=== PATIENT | female | born 1955 | race Caucasian/White ===

== ENCOUNTER 2020-09-07 19:31 | Observation (INO) ==
[2020-09-07 20:20] LABS: ABG ALLEN TEST POS; ABG BASE EXCESS 3.2 mmol/L (-2.0-2.0); ABG HCO3 26.9 mmol/L (22-26)
[2020-09-07 20:22] VITALS: BMI 29.2
--- NOTE | 2020-09-07 20:49 | DR.EXTPAIN ---
HPI Time seen Time Seen by Provider: 09/07/20 20:48 PCP Primary Care Physician: GALDINO HERNANDEZ HPI Comment HPI Comment: According to pt she was tested pos for covid over a week ago .has noticed gradual increase inshortness of bretah .became cocenrend hence the visit .her oxygen was running in higher 80`s on room air .Pt has hx of astham .has bee started on steroids already by her FP and completed a course for ivermectin Complaint/Symptoms Chief Complaint Doctor Comments: shortness of breath Chief Complaint:: PT STATED SHE HAD COVID LAST WEDNESDAY TESTED POSITIVE. SHE STA KATI TODAY SHE HAS BEEN SOB. PT DENIES PAIN AT THIS TIME. COVID-19 Coronavirus symptoms experienced: Shortness of Breath Nurses notes reviewed Nurses Notes Review: Yes Source History Provided: Patient Mode of arrival Mode of Arrival: Ambulatory Timing Onset of Chief Complaint: 08/30/20 Context History of: None Associated signs and symptoms Associated Signs and Symptoms: Shortness of Breath PMH PMH Past Medical History: Yes Past Medical History: Asthma, Depression and Hypertension Past Medical History Comment: COVID Past Surgical History: No Family History History of Family Medical Conditions: Yes Family Medical History: Diabetes Mellitus and Hypertension Social History Type of Tobacco Use: None Alcohol Use: None Do you use any recreational Drugs:: No Lives With: Family Lives Where: Home Infectious screening In the last 2 months have you had wt loss of >10#?: NO Have you had fever, night sweats or hemotysis?: No Have you traveled outside the country in the last 6 months?: No Isolation: Droplet ROS Review of Systems Eyes: No Symptoms Reported ENTM: No Symptoms Reported Respiratoy: Dry Cough and Short of Breath Cardiovascular: No Symptoms Reported Gastrointestinal/Abdominal: No Symptoms Reported Genitourinary: No Symptoms Reported Neurological: No Symptoms Reported Musculoskeletal: No Symptoms Reported Integumentary: No Symptoms Reported Hematologic/Lymphatic: No Symptoms Reported Endocrine: No Symptoms Reported PE Vital Signs Vitals: Temperature 97.9 F Pulse Rate [Right Radial] 70 Pulse Rate 89 Respiratory Rate 20 Blood Pressure [Right Arm] 134/72 Blood Pressure 115/58 O2 Sat by Pulse Oximetry 96 General Limitations: No Limitations General Appearance: Alert, Anxious and In Distress Head Head Exam: Normal Inspection and Atraumatic Eyes Eye exam: Normal Appearance, PERRL and EOMI ENT ENT Exam: Normal Oropharynx and Mucous Membranes Dry Neck Neck Exam: Normal Inspection and Full ROM Chest Chest Inspection: Normal Inspection and Symmetric Chest Wall Rise Respiratory Respiratory Exam: Bilateral: Crackles Cardiovascular Cardiovascular Exam: +S1 and +S2 Abdominal Exam Abdominal Exam: Normal Inspection, Normal Bowel Sounds and Soft Neurological Neurological Exam: Alert, Oriented X3, CN II-XII Intact and Reflexes Normal Skin Skin Exam: Normal Color MDM Differential Diagnosis Differential Diagnosis: Other (covid 19 infection,hypoxia,shortness of breath ,cough ,hx of asthma) COURSE Treatment Treatment: oxygenation improved with oxygen via NC dsicussed with Dr Loya agreed to admit patient under observation ROR Labs Reviewed Laboratory Results Reviewed?: Yes Result Diagrams: 09/07/20 22:24 09/07/20 22:24 Laboratory: WBC 4.4 X10^3/uL (3.6-10.0) 09/07/20 22:24 RBC 4.30 X10^6/uL (3.5-5.4) 09/07/20 22:24 Hgb 13.5 g/dL (12.0-16.0) 09/07/20 22:24 Hct 38.4 % (36.0-47.0) 09/07/20 22:24 MCV 89.3 fL (80.0-100.0) 09/07/20 22:24 MCH 31.4 pg (27.0-34.0) 09/07/20 22:24 MCHC 35.2 g/dL (33.0-35.0) H 09/07/20 22:24 RDW 12.8 % (11.6-16.5) 09/07/20 22:24 Plt Count 218 X10^3/uL (150.0-450.0) 09/07/20 22:24 MPV 8.7 fL (7.4-11.0) 09/07/20 22:24 Neut % (Auto) 70.5 % (42.0-75.0) 09/07/20 22:24 Lymph % (Auto) 15.0 % (21.0-51.0) L 09/07/20 22:24 [place] % (Auto) 14.0 % (0.0-13.0) H 09/07/20 22:24 Eos % (Auto) 0.0 % (0.9-2.9) L 09/07/20 22:24 Baso % (Auto) 0.5 % (0.2-1.0) 09/07/20 22:24 Neut # (Auto) 3.1 x10^3/uL (2.2-4.8) 09/07/20 22:24 Lymph # (Auto) 0.7 X10^3/uL (1.3-2.9) L 09/07/20 22:24 [place] # (Auto) 0.6 x10^3/uL (0.3-0.8) 09/07/20 22:24 Eos # (Auto) 0.0 x10^3/uL (0.0-0.2) 09/07/20 22:24 Baso # (Auto) 0.0 X10^3/uL (0.0-0.1) 09/07/20 22:24 Absolute Nucleated RBC 0.1 /100WBC 09/07/20 22:24 D-Dimer 0.53 ug/ml (0.0-0.57) 09/07/20 22:24 Sample Site Lr 09/07/20 20:12 ABG pH 7.470 (7.35-7.45) H 09/07/20 20:12 ABG pCO2 37.0 mmHg (35.0-45.0) 09/07/20 20:12 ABG pO2 59.0 mmHg (80.0-100.0) L 09/07/20 20:12 ABG HCO3 26.9 mmol/L (22-26) H 09/07/20 20:12 ABG O2 Saturation 92.0 % (90-100) 09/07/20 20:12 ABG Base Excess 3.2 mmol/L (-2.0-2.0) H 09/07/20 20:12 Raj Test Pos 09/07/20 20:12 A-a Gradient 44.0 mmHg 09/07/20 20:12 FiO2 21 09/07/20 20:12 Blood Gas Comments Adrianne well ae 09/07/20 20:12 Sodium 141 mmol/L (136-145) 09/07/20 22:24 Corrected Sodium 141 mmol/L (136-145) 09/07/20 22:24 Potassium 3.7 mmol/L (3.5-5.1) 09/07/20 22:24 Chloride 103 mmol/L (98-107) 09/07/20 22:24 Carbon Dioxide 28.4 mmol/L (21-32) 09/07/20 22:24 BUN 10 mg/dL (7-18) 09/07/20 22:24 Creatinine 0.86 mg/dL (0.55-1.02) 09/07/20 22:24 Est GFR (MDRD) Af Amer > 60 (>60) 09/07/20 22:24 Est GFR (MDRD) Non-Af > 60 (>60) 09/07/20 22:24 Glucose 114 mg/dL (65-99) H 09/07/20 22:24 Calcium 9.0 mg/dL (8.5-10.1) 09/07/20 22:24 Corrected Calcium 9.6 mg/dL (8.5-10.1) 09/07/20 22:24 Ferritin 307 ng/mL (8-252) H 09/07/20 22:24 Total Bilirubin 0.40 mg/dL (0.2-1.0) 09/07/20 22:24 AST 15 Units/L (15-37) 09/07/20 22:24 ALT 28 Units/L (12-78) 09/07/20 22:24 Alkaline Phosphatase 97 Units/L (46-116) 09/07/20 22:24 Total Protein 7.5 g/dL (6.4-8.2) 09/07/20 22:24 Albumin 3.2 g/dL (3.4-5.0) L 09/07/20 22:24 Globulin 4.3 g/dL (2.5-4.5) 09/07/20 22:24 Albumin/Globulin Ratio 0.7 Ratio (1.1-2.1) L 09/07/20 22:24 Specimen Type Clean catch urine 09/07/20 22:26 Urine Color Yellow (YELLOW) 09/07/20 22: Urine Appearance Clear (CLEAR) 09/07/20 22: Urine pH 7.0 (5.0 - 8.0) 09/07/20 22:26 Ur Specific [place] 1.010 (1.000-1.030) 09/07/20 22: Urine Protein Negative (NEGATIVE) 07/10/21 22:26 Urine Glucose (UA) Negative (NEGATIVE) 09/07/20 22:26 Urine Ketones Negative (NEGATIVE) 09/07/20 22:26 Urine Occult Blood 1+ (NEGATIVE) 09/07/20 22:26 Urine Nitrite Negative (NEGATIVE) 09/07/20 22:26 Urine Bilirubin Negative (NEGATIVE) 09/07/20 22:26 Urine Urobilinogen Normal (NORMAL) 09/07/20 22:26 Ur Leukocyte Esterase 2+ (NEGATIVE) 09/07/20 22:26 Urine RBC None seen /HPF (0-3) 09/07/20 22:26 Urine WBC None seen /HPF (0-5) 09/07/20 22:26 Ur Squamous Epith Cells Few /HPF (NEGATIVE) 09/07/20 22:26 Urine Bacteria Negative /HPF (NEGATIVE) 09/07/20 22:26 Ur Culture Indicated? No/not indicated 09/07/20 22:26 SARS CoV-2 RNA Rapid IVETH Positive (NEGATIVE) A 09/07/20 23:53 XRAY XRAY Interpreted by: Radiologist X-ray Results: subtle scattered area s of alveolar air space disease Opioid Opioid Risk Tool Total: 0 Total Score Risk Category: Low Risk Copyright: Erik EVANS predicting aberrant behaviors Diagnosis Discharge Problem: COVID-19 virus infection, Hypoxia, Pneumonia due to COVID-19 virus
--- NOTE | 2020-09-07 21:30 | RAD ---
STUDY: FRONTAL VIEW CHESTCOMPARISON: NoneHISTORY: Pt was covid, and now she has shortness of breathFINDINGS:Emphysematous changes are notedSubtle scattered areas of alveolar airspace disease is seen in the bilateral mid and lower lung zonesThe heart size is within normal limits.The mediastinum is unremarkable.There is no evidence of pleural effusion or gross pneumothorax.The trachea is midline.IMPRESSION:1. Subtle scattered areas of alveolar airspace disease is seen in the bilateral mid and lower lung zonesElectronically signed by: Seven Morgan (Sep 07, 2020 21:28:35)
[2020-09-07 22:39] LABS: BASOPHILS % (AUTO) 0.5 % (0.2-1.0); HEMATOCRIT 38.4 % (36.0-47.0); HEMOGLOBIN 13.5 g/dL (12.0-16.0); LYMPHOCYTES # (AUTO) 0.7 X10^3/uL (1.3-2.9); MEAN CORPUSCULAR HEMOGLOBIN 31.4 pg (27.0-34.0); MEAN CORPUSCULAR HGB CONC 35.2 g/dL (33.0-35.0); MEAN CORPUSCULAR VOLUME 89.3 fL (80.0-100.0); MEAN PLATELET VOLUME 8.7 fL (7.4-11.0); MONOCYTES # (AUTO) 0.6 x10^3/uL (0.3-0.8); NEUTROPHILS # (AUTO) 3.1 x10^3/uL (2.2-4.8); NEUTROPHILS % (AUTO) 70.5 % (42.0-75.0); PLATELET COUNT 218 X10^3/uL (150.0-450.0); RED CELL DISTRIBUTION WIDTH 12.8 % (11.6-16.5); WHITE BLOOD COUNT 4.4 X10^3/uL (3.6-10.0)
[2020-09-07 22:47] LABS: ALANINE AMINOTRANSFERASE 28 Units/L (12-78); ALBUMIN 3.2 g/dL (3.4-5.0); ALKALINE PHOSPHATASE 97 Units/L (46-116); ASPARTATE AMINO TRANSFERASE 15 Units/L (15-37); BLOOD UREA NITROGEN 10 mg/dL (7-18); CARBON DIOXIDE 28.4 mmol/L (21-32); CHLORIDE 103 mmol/L (98-107); COR CA(FOR HYPOALB) 9.6 mg/dL (8.5-10.1); COR NA(FOR HYPERGLY) 141 mmol/L (136-145); CREATININE 0.86 mg/dL (0.55-1.02); SODIUM 141 mmol/L (136-145); TOTAL PROTEIN 7.5 g/dL (6.4-8.2); eGFR NON BLACK RACES > 60 (>60)
[2020-09-07 23:30] LABS: BILIRUBIN,URINE NEGATIVE (NEGATIVE); BLOOD/HEMOGLOBIN,URINE 1+ (NEGATIVE); GLUCOSE, URINE NEGATIVE (NEGATIVE); KETONES,URINE NEGATIVE (NEGATIVE); LEUKOCYTE ESTERASE ,URINE 2+ (NEGATIVE); NITRITES,URINE NEGATIVE (NEGATIVE); PROTEIN,URINE NEGATIVE (NEGATIVE); UROBILINOGEN,URINE NORMAL (NORMAL)
[2020-09-07 23:58] LABS: APPEARANCE,URINE CLEAR (CLEAR); COLOR,URINE YELLOW (YELLOW)
[2020-09-07 23:59] LABS: BACTERIA,URINE NEGATIVE /HPF (NEGATIVE); RBC,URINE NONE SEEN /HPF (0-3); SQUAMOUS EPITHELIAL CELL,UR FEW /HPF (NEGATIVE)
[2020-09-08] MEDS ORDERED: SALINE 3% 15 ML NEB TX NEB ONE (04:52)
[2020-09-08] MEDS ORDERED: SALINE 3% 15 ML NEB TX ONE (05:02)
[2020-09-08] MEDS: DUONEB 0.5 MG/3 MG (3 mL) NEB SCH ×6 (06:15→21:25)
[2020-09-08] MEDS ORDERED: REMDESIVIR 200 MG in NS 250 ML IV 250 ML IV ONE (09:20)
[2020-09-08] MEDS: PULMICORT NEB TX 0.5 MG NEB SCH ×2 (09:54→21:25)
[2020-09-08] MEDS: SOLU-Medrol 40 MG VIAL IVP SCH ×3 (10:31→21:42)
[2020-09-08] MEDS ORDERED: LEVAQUIN PREMIX IV 500 MG 500 MG/100 ML BAG IV SCH (11:00)
[2020-09-08] MEDS: PROTONIX TAB 40 MG PO SCH (11:35)
[2020-09-08] MEDS: ZESTORETIC 10/ 12.5MG PO SCH (11:36)
[2020-09-08] MEDS: WELLBUTRIN XL 300 MG (DAILY) PO SCH (11:47)
[2020-09-08] MEDS: ZITHROMAX INJ 500 MG VIAL 500 MG in NS 250 ML IV 250 ML IV SCH (13:00)
[2020-09-08] MEDS ORDERED: LOVENOX INJ 40 MG SYR SC ONE (13:11)
--- NOTE | 2020-09-08 18:47 | DR.H&P ---
H&P - History & Physical for Day of: H&P Date: 09/07/20 - Chief Complaint Chief Complaint: COUGH, SOB, LOW OXYGEN SATURATIONS - History of Present Illness History of Present Illness: IS A 65 YEAR OLD WHITE FEMALE. SHE PRESENTED TO THE ER WITH COMPLAINTS OF INCREASED SHORTNESS OF BREATH, COUGH, AND LOW OXYGEN SATURATIONS. SHE ADMITS TO TESTING POSITIVE FOR COVID ABOUT A WEEK AGO. SHE HAS BEEN SHORT OF BREATH, BUT IT HAS PROGRESSIVELY GOTTEN WORSE. SHE REPORTS THAT JUST PRIOR TO ARRIVAL, HER OXYGEN SATURATIONS DROPPED TO THE 80s ON ROOM AIR. SHE HAS A HISTORY OF ASTHMA. SHE HAS BEEN ON CIPRO 500MG BID X 5 DAYS, PREDNISONE, AND HAS COMPLETED A COURSE OF IVERMECTIN. HER PMH INCLUDES HTN, MITRAL VALVE PROLAPSE, ASTHMA, BRONCHITIS, PNEUMONIA, GERD, GALL BLADDER DISEASE, HERNIA REPAIR, ARTHRITIS, ANEMIA, DEPRESSION, BREAST IMPLANTS, BILATERAL TKA. ON ARRIVAL TO THE ER, VITALS WERE 97.9-89-24-91%RA-115/58. LABS WERE OBTAINED. ABNORMAL LAB VALUES INCLUDE THE FOLLOWING: GLUCOSE 114, FERRITIN 307, CRP 23.40, ALBUMIN 3.2. OTHERWISE, SHE IS HEMODYNAMICALLY STABLE. AN ABG WAS OBTAINED AND REVEALED: PH 7.470, PC02 37, P02 59, HC03 26.9, 02 SAT 92, BASE EXCESS 3.2, A-A GRADIENT 44, FI02 21.0. COVID-19 POSITIVE. SPUTUM CULTURE WAS SET UP. A CHEST XRAY WAS OBTAINED AND REVEALED: 1. Subtle scattered areas of alveolar airspace disease is seen in the bilateral mid and lower lung zones. PATIENT WAS ADMITTED TO THE HOSPITAL FOR FURTHER EVALUATION AND TREAMTENT OF COVID-19, BRONCHOPNEUMONIA, AND HYPOXIA. SHE WAS STARTED ON REMDESIVIR 200MG IV X 1 DOSE, THEN 100MG IV DAILY, AZITHROMYCIN 500MG IV DAILY, DUONEBS Q4H, PULMICORT NEBS, WELLBUTRIN XL 300MG PO DAILY, LOVENOX 40MG SC DAILY, ZESTORETIC 10/12.5 0.5 TAB DAILY, SOLU-MEDROL 80MG IV Q8H, PROTONIX 40MG PO DAILY. WE PLAN TO FOLLOW UP WITH AM LABS, CHEST XRAY, AND CONTINUE TO MONITOR. TIME SPENT ON CLINICAL ASSESSMENT, REVIEWING LABS AND IMAGING, DECISION MAKING, AND DOCUMENTATION WAS GREATER THAN 75 MINUTES. - Past Medical History Past Medical History: Hypertension, Depression, Asthma - Past Surgical History Surgical History: Ortho Surgery - Family History Family Medical History: Diabetes Mellitus, Hypertension - Social History Does patient currently use any type of tobacco product: No Have you used tobacco products in the last 12 months: No Type of Tobacco Use: None Does any household member use tobacco: No Alcohol Use: None Drug Use: None - Medications Home Medications: levofloxacin [From Levaquin] Allergy (Verified 09/08/20 12:24) ANAPHALEXIS REACTION Penicillins Allergy (Verified 09/07/20 20:23) Sulfa (Sulfonamide Antibiotics) Allergy (Verified 09/07/20 20:23) CONTINUE taking the following medications albuterol sulfate 2.5 mg INHALATION DAILY PRN 09/08/20 [History] albuterol sulfate [ProAir HFA] 90 inh INHALATION BID PRN 09/08/20 [History] bupropion HCl [Wellbutrin XL] 300 mg PO DAILY 09/08/20 [History] cholecalciferol (vitamin D3) [Vitamin D3] 125 mcg PO ONCE 09/08/20 [History] lisinopril-hydrochlorothiazide [Zestoretic] 0.5 tab PO DAILY 09/08/20 [History] pantoprazole [Protonix] 40 mg PO DAILY 09/08/20 [History] prednisone 50 mg PO DAILY 09/08/20 [History] - Physical Exam Vital Signs: Temperature 98.5 F Pulse Rate [Right Radial] 67 Pulse Rate 80 Respiratory Rate 21 Blood Pressure [Right Arm] 117/60 Blood Pressure 115/58 O2 Sat by Pulse Oximetry 92 - Allergies Allergies/Adverse Reactions: Allergies Allergy/AdvReac Type Severity Reaction Status Date / Time levofloxacin [From Levaquin] Allergy ANAPHALEXIS Verified 09/08/20 12:24 REACTION Penicillins Allergy Verified 09/07/20 20:23 Sulfa (Sulfonamide Allergy Verified 09/07/20 20:23 Antibiotics)
[2020-09-09] MEDS: DUONEB 0.5 MG/3 MG (3 mL) NEB SCH ×4 (01:25→12:09)
[2020-09-09] MEDS ORDERED: ARTIFICIAL TEARS DROPS AFFEYE SCH (04:23)
[2020-09-09] MEDS ORDERED: ARTIFICIAL TEARS DROPS ONE (04:29)
[2020-09-09 05:10] LABS: BASOPHILS % (AUTO) 0.1 % (0.2-1.0); HEMATOCRIT 36.7 % (36.0-47.0); HEMOGLOBIN 12.8 g/dL (12.0-16.0); LYMPHOCYTES # (AUTO) 0.7 X10^3/uL (1.3-2.9); LYMPHOCYTES % (AUTO) 15.8 % (21.0-51.0); MEAN CORPUSCULAR HEMOGLOBIN 31.2 pg (27.0-34.0); MEAN CORPUSCULAR HGB CONC 34.8 g/dL (33.0-35.0); MEAN CORPUSCULAR VOLUME 89.6 fL (80.0-100.0); MEAN PLATELET VOLUME 8.6 fL (7.4-11.0); MONOCYTES # (AUTO) 0.3 x10^3/uL (0.3-0.8); NEUTROPHILS # (AUTO) 3.5 x10^3/uL (2.2-4.8); NEUTROPHILS % (AUTO) 77.1 % (42.0-75.0); PLATELET COUNT 258 X10^3/uL (150.0-450.0); RED BLOOD COUNT 4.09 X10^6/uL (3.5-5.4); RED CELL DISTRIBUTION WIDTH 12.9 % (11.6-16.5); WHITE BLOOD COUNT 4.5 X10^3/uL (3.6-10.0)
[2020-09-09 05:30] LABS: ALANINE AMINOTRANSFERASE 27 Units/L (12-78); ALBUMIN 2.8 g/dL (3.4-5.0); ALKALINE PHOSPHATASE 86 Units/L (46-116); ASPARTATE AMINO TRANSFERASE 11 Units/L (15-37); BLOOD UREA NITROGEN 12 mg/dL (7-18); CALCIUM 8.8 mg/dL (8.5-10.1); CARBON DIOXIDE 27.4 mmol/L (21-32); CHLORIDE 106 mmol/L (98-107); COR CA(FOR HYPOALB) 9.8 mg/dL (8.5-10.1); COR NA(FOR HYPERGLY) 143 mmol/L (136-145); CREATININE 0.72 mg/dL (0.55-1.02); SODIUM 142 mmol/L (136-145); TOTAL PROTEIN 7.1 g/dL (6.4-8.2); eGFR NON BLACK RACES > 60 (>60)
[2020-09-09] MEDS: SOLU-Medrol 40 MG VIAL IVP SCH (06:20)
--- NOTE | 2020-09-09 08:02 | RAD ---
HISTORYSOBSTUDYCHEST x-ray, 1 VIEWCOMPARISONProm[facility] 09/07/2020FINDINGSPeripheral lung infiltrates are similar to prior study. These are greater on the right than the left. Findings could be due to pneumonia or post infectious changes. A few of the densities in the mid-lungs appear nodular. Continued x-ray follow up to document resolution is recommended to assure no true lung nodules. Borderline cardiomegaly. Possible small pleural effusions. No pneumothorax is seen.IMPRESSIONAppearance of the chest is similar to prior study. Findings likely represent pneumonia or post infectious changes. Continued x-ray follow-up is recommended to assure no lung nodules, as several of the densities in the lungs are slightly rounded.Electronically signed by: Herber Hopkins (Sep 09, 2020 08:00:48)
[2020-09-09] MEDS: PROTONIX TAB 40 MG PO SCH (08:40)
[2020-09-09] MEDS: WELLBUTRIN XL 300 MG (DAILY) PO SCH (08:40)
[2020-09-09] MEDS: ZESTORETIC 10/ 12.5MG PO SCH (08:40)
[2020-09-09] MEDS ORDERED: REMDESIVIR 100 MG in NS 250 ML IV 250 ML IV SCH (09:00)
[2020-09-09] MEDS: PULMICORT NEB TX 0.5 MG NEB SCH (09:37)
[2020-09-09] MEDS: ZITHROMAX INJ 500 MG VIAL 500 MG in NS 250 ML IV 250 ML IV SCH (09:45)
[2020-09-09] MEDS ORDERED: LOVENOX INJ 40 MG SYR SC SCH (12:00)
[2020-09-09 13:45] VITALS: BP 117/63
== END 2020-09-09 14:00 | disposition home or self-care (01) ==
LOC: OBS 19:50 → ER 19:50 → OBS 09-08 02:00 → ICU 09-08 08:26
PROVIDERS: ADMIT Internal Medicine; ATTEND Internal Medicine
DX: R06.02 Shortness of breath; U07.1 COVID-19; R79.89 Other specified abnormal findings of blood chemistry; B96.5 Pseudomonas (aeruginosa) (mallei) (pseudomallei) as the cause of diseases classified elsewhere; J12.82 Pneumonia due to coronavirus disease 2019; R79.82 Elevated C-reactive protein (CRP)